=== PATIENT | female | born 1945 | race Caucasian/White ===

== ENCOUNTER 2016-09-29 13:47 | Emergency (ER) | payer OTHER ==
--- NOTE | 2016-09-29 15:16 | ED EKG INTERP ---
EKG Interpretation - EKG Time of EKG reading by physician:: 13:56 EKG Read and Signed by:: Moy Aguilar EKG Interpretation (*Must complete 3 of following elements*): Abnormal Rate: 85 (possible left atrial enlargement; rightward axis;septal infarct) Rhythm: NSR Attestation - Scribe Verification/Attestation Scribe:: Lakeshia Claros Acting as Scribe for:: Moy Aguilar Scribe documention review:: This chart was documented by a scribe and accurately reflects the service the provider performed and the decisions made by the provider.
--- NOTE | 2016-09-29 15:55 | Diag Imaging Result Document ---
PROCEDURE NAME: CHEST-2 VIEWS - 09/29/2016 PA AND LATERAL RADIOGRAPH OF THE CHEST: COMPARISON: 07/05/2016. FINDINGS: The lungs are grossly clear. There is no discrete pleural fluid collection or evidence of pneumothorax. The cardiomediastinal silhouette and upper airway are grossly unremarkable. IMPRESSION: No evidence of acute chest pathology.
--- NOTE | 2016-09-29 16:43 | PROVIDER DOCUMENTATION ---
HPI-General Adult - General Chief Complaint: Chest Pain Stated Complaint: CHEST PAIN Time Seen by Provider: 09/29/16 16:37 Source: patient Allergies/Adverse Reactions: Patient Allergies Allergy/AdvReac Type Severity Reaction Status Date / Time No Known Allergies Allergy Verified 07/05/16 13:28 Home Medications: Home Medication List Medication Instructions Recorded Confirmed Last Taken Type Ipratropium/Albuterol INH 2 puff INH Q6H PRN PRN 03/26/12 07/05/16 10/06/12 09: 00 History [Combivent Respimat Inhaler] Aspirin 81 mg PO DAILY 30 Days 07/10/16 Unknown Rx Budesonide [Pulmicort] 0.25 mg INH RTBID 30 Days 07/10/16 Unknown Rx Lorazepam [Ativan] 0.5 mg PO BID PRN PRN 14 Days 07/10/16 Unknown Rx Magnesium Oxide [Mag-Ox] 400 mg PO BID #6 tablet 07/10/16 Unknown Rx Melatonin 5 mg PO QHS 30 Days 07/10/16 Unknown Rx Metformin [Glucophage] 500 mg PO BID 30 Days 07/10/16 Unknown Rx Rivastigmine [Exelon 4.6MG/24Hrs] 1 each TD DAILY 30 Days 07/10/16 Unknown Rx SIMVAstatin [Zocor] 40 mg PO DAILY 30 Days 07/10/16 Unknown Rx Verapamil S.r. [Isoptin Sr] 180 mg PO DAILY 30 Days 07/10/16 Unknown Rx - History of Present Illness -Gen Adult Nature of Presenting Problems: Pt. is 71 yof that presents with c/o fluttering in her chest that is intermittent since June 2016. Pt. reports she has seen her PCP several times but has not mentioned it to them. Pt. states when she feels the fluttering, it takes her breath away. Pt. denies any radiation of pain, N/V, or other symptoms. Pt. reports a hx of anxiety and that she took an ativan [employer]IN[employer]CH[employer]. Pt. reports she came to the ED today because it just keeps happening. Location of Pain/Injury: reports: chest. denies: head, face, mouth, neck, upper extremity, hand(s), abdomen, back, pelvis, genitalia, lower extremity, feet, upper body, lower body, generalized Pain Radiation: reports: no radiation Quality of Pain: reports: other (Fluttering). denies: aching, burning, cramping , dull, fullness, indigestion, pressure, sharp, stabbing, tearing, throbbing, tightness Severity: reports: mild. denies: moderate, severe Onset/Duration: reports: gradual, other (3 months) Timing: reports: still present, intermittent. denies: improving, gone now, resolved prior to arrival, constant, changing over time, getting worse Context/Activities at Onset: reports: none. denies: recent emotional stress, recent physical stress, recent trauma history, possible bad food, cold exposure , out of country travel Modifying Factors: improves with: nothing Associated Symptoms: reports: anxiety, chest pain (Fluttering), shortness of breath. denies: arm pain, back/neck pain, constipation, cough, diaphoresis, diarrhea, dizziness, EENT symptoms, fatigue, fever/chills, genitourinary problems, headaches, heartburn, joint pain, loss of appetite, malaise, muscle aches, sinus congestion/drainage, nausea, rash, seizure, sensory/motor loss, pain with inspiration, swelling/mass in abdomen, syncope, vomiting, weakness, trouble walking Similar Symptoms Previously?: Yes Recently seen or treated by another doctor?: No Review of Systems - Adult - REVIEW OF SYSTEMS - ADULT Constitutional: reports: see HPI. denies: chills, fever, fatique Eyes: reports: see HPI. denies: discharge, blurred vision, double vision Ears, Nose, Mouth & Throat: reports: see HPI. denies: ear pain, sinus problem, nose pain, loose teeth, mouth/dental pain, throat swelling Cardiovascular: reports: see HPI, palpitations. denies: chest pain, irregular heart rate, orthopnea, syncope Respiratory: reports: see HPI, shortness of breath. denies: cough, dyspnea on exertion, pleurisy Gastrointestinal: reports: see HPI. denies: abdominal pain, hematemesis, constipation, diarrhea, nausea, vomiting Genitourinary: reports: see HPI. denies: dysuria, discharge, flank pain, hematuria, hesitency, urgency Musculoskeletal: reports: see HPI. denies: bone pain, back pain, joint pain, muscle aches, neck pain Integumentary: reports: see HPI. denies: hives, itching, rash, skin thickening Neurological: reports: see HPI. denies: ataxia, headache/migraines, numbness, seizure, tremors Psychiatric: reports: see HPI. denies: anxiety, depression, emotional problems , insomnia, panic attacks, suicidal thoughts Past History - Adult - PAST MEDICAL HISTORY-ADULT Review of Records: reports: Old Records Reviewed, Nursing Assessment Review, Medications Reviewed, Social history reviewed & non-contributory. Major Childhood Illnesses: reports: history unknown Cardiovascular: reports: HTN, hyperlipidemia Respiratory: reports: COPD Psychiatric: reports: anxiety, depression, schizophrenia Endocrine/Immune: reports: Diabetes - PRIOR SURGERIES/PROCEDURES Surgical/Procedure History: reports: reviewed, not pertinent - IMMUNIZATION STATUS Childhood Immunizations: See Nurse Assessment Flu Vaccine: See Nurse Assessment - FAMILY HISTORY Family History: reviewed, not pertinent - SOCIAL HISTORY Smoking: cigarettes, greater than 1 pack/day Provider spent 3-5 mins advising pt. on dangers of tobacco.: Discussed the need to stop smoking. Physical Exam-General - PHYSICAL EXAM-ADULT Initial Vital Signs Reviewed: Yes - CONSTITUTIONAL General Appearance: alert, no apparent distress, thin. negative: anxious, lethargic, slow to respond, obtunded, combative - EYES Eyes: PERRL/EOMI, pink conjunctivae. negative: conjuctival exudate, scleral icterus, subconjunctival hemorrhage - HEAD, EARS, NOSE, MOUTH & THROAT HENMT: normocephalic/atraumatic, moist mucous membranes. negative: angioedema, frontal tenderness, maxillary tenderness - NECK Neck: non-tender, full range of motion, supple, normal inspection. negative: lymphadenopathy, trachial deviation, thyromegaly - RESPIRATORY Respiratory: wheezing (Mild). negative: crackles, rales, rhonchi, stridor - CARDIOVASCULAR Cardiovascular: normal peripheral pulses, regular rate, rhythm, no edema, no JVD , no murmur. negative: extra beats, friction rub, irregularly irregular - CHEST (BREASTS) Chest/Breast: deferred - GASTROINTESTINAL (ABDOMEN) Abdominal Exam: normal bowel sounds, non tender, soft. negative: distended, guarding, rigid, rebound, tenderness, hernia, mass - GENITOURINARY Female Genitalia/Pelvic Exam: deferred Rectal Exam: deferred Hemoccult Exam: deferred - LYMPHATIC Lymphatic: no adenopathy. negative: axilla node tender, cervical node tenderness - MUSCULOSKELETAL Back Exam: normal inspection, no CVA tenderness, no vertebral tenderness. negative: ecchymosis, swelling, vertebral tenderness Extremity: normal range of motion, non-tender, normal inspection. negative: deformity, erythema, inflammation, swelling, tenderness Peripheral Pulses: radial (R): 2+, radial (L): 2+ - SKIN Integumentary: normal color, normal turgor, warm/dry. negative: cyanosis, diaphoresis, ecchymosis, erythema, jaundice, mottled, pallor, petechiae, purpura , rash, swelling, tenderness - NEUROLOGIC Neurologic: grossly normal, no motor/sensory deficits. negative: aphasia, facial droop, focal weakness, motor weakness, sensory deficit - PSYCHIATRIC Psych/Mental Status: normal mood/affect, normal thought content, normal thought process, oriented x 3. negative: anxious, paranoid, tearful Progress - PLAN OF CARE/RESULTS Progress/Plan/Lab Results: Discussed results and plan with Dr. Lo and he agrees with plan. Discussed results and plan of care with patient. Patient agrees with plan and verbalizes understanding. Vital Signs Temp Pulse Resp BP Pulse Ox 09/29/16 13:56 97.9 F 84 18 159/58 97 No Known Allergies Allergy (Verified 07/05/16 13:28) Ipratropium/Albuterol INH [Combivent Respimat Inhaler] 2 puff INH Q6H PRN PRN Aspirin 81 mg PO DAILY 30 Days 07/10/16 Budesonide [Pulmicort] 0.25 mg INH RTBID 30 Days 07/10/16 Lorazepam [Ativan] 0.5 mg PO BID PRN PRN 14 Days 07/10/16 Magnesium Oxide [Mag-Ox] 400 mg PO BID #6 tablet 07/10/16 Melatonin 5 mg PO QHS 30 Days 07/10/16 Metformin [Glucophage] 500 mg PO BID 30 Days 07/10/16 Rivastigmine [Exelon 4.6MG/24Hrs] 1 each TD DAILY 30 Days 07/10/16 SIMVAstatin [Zocor] 40 mg PO DAILY 30 Days 07/10/16 Verapamil S.r. [Isoptin Sr] 180 mg PO DAILY 30 Days 07/10/16 Laboratory 09/29/16 09/29/16 09/29/16 17:15 17:15 17:15 WBC RBC Hgb Hct MCV MCH MCHC RDW Std Deviation Plt Count MPV Immature Gran % (Auto) Neut % (Auto) Lymph % (Auto) [place] % (Auto) Eos % (Auto) Baso % (Auto) Immature Gran # (Auto) Neut # (Auto) Lymph # (Auto) [place] # (Auto) Eos # (Auto) Baso # (Auto) PT 10.1 INR 0.99 PTT (Actin FS) 28.1 D-Dimer Sodium Potassium Chloride Carbon Dioxide Anion Gap BUN Creatinine Estimated GFR/1.73 m2 BUN/Creatinine Ratio Glucose Calculated Osmolality Calcium Magnesium Total Bilirubin AST ALT Alkaline Phosphatase Creatine Kinase Troponin T < 0.010 Kzr-C-Mtrnzzmnfgr Pept 165 Total Protein Albumin Globulin Albumin/Globulin Ratio 09/29/16 09/29/16 09/29/16 17:15 17:15 17:15 WBC 9.43 RBC 5.17 Hgb 15.6 Hct 47.3 H MCV 91.5 MCH 30.2 MCHC 33.0 RDW Std Deviation 14.3 Plt Count 245 MPV 10.7 H Immature Gran % (Auto) 0.0 Neut % (Auto) 61.6 Lymph % (Auto) 29.5 [place] % (Auto) 6.3 Eos % (Auto) 2.2 Baso % (Auto) 0.4 Immature Gran # (Auto) 0.00 Neut # (Auto) 5.81 Lymph # (Auto) 2.78 [place] # (Auto) 0.59 Eos # (Auto) 0.21 Baso # (Auto) 0.04 PT INR PTT (Actin FS) D-Dimer 0.20 Sodium 139 Potassium 4.2 Chloride 99 Carbon Dioxide 28 Anion Gap 12 BUN 9 Creatinine 0.6 Estimated GFR/1.73 m2 > 60 BUN/Creatinine Ratio 15 Glucose 100 Calculated Osmolality 276 Calcium 9.0 Magnesium 2.0 Total Bilirubin 0.37 AST 23 ALT 14 Alkaline Phosphatase 70 Creatine Kinase 47 Troponin T Gnb-Q-Djzudikbqsv Pept Total Protein 7.0 Albumin 4.0 Globulin 3.0 Albumin/Globulin Ratio 1.3 Orders Category Date Time Status CHEST-2 VIEWS [RAD] Stat Exams 09/29/16 14:22 Draft CBC WITH ELECTRONIC DIFF [HEME] Stat Lab 09/29/16 17:15 Completed CK PROFILE [SP CHEM] Stat Lab 09/29/16 17:15 Completed COMPREHENSIVE METABOLIC PANEL [CHEM] Stat Lab 09/29/16 17:15 Completed D-DIMER [CHEM] Stat Lab 09/29/16 17:15 Completed MAGNESIUM [CHEM] Stat Lab 09/29/16 17:15 Completed PRO B-NATRIURETIC PEPTIDE Stat Lab 09/29/16 17:15 Completed PROTIME WITH INR [COAG] Stat Lab 09/29/16 17:15 Completed PTT [COAG] Stat Lab 09/29/16 17:15 Completed TROPONIN T Stat Lab 09/29/16 17:15 Completed Laboratory Tests 09/29/16 09/29/16 09/29/16 17:15 17:15 17:15 WBC 9.43 RBC 5.17 Hgb 15.6 Hct 47.3 H MCV 91.5 MCH 30.2 MCHC 33.0 RDW Std Deviation 14.3 Plt Count 245 MPV 10.7 H Immature Gran % (Auto) 0.0 Neut % (Auto) 61.6 Lymph % (Auto) 29.5 Eagle % (Auto) 6.3 Eos % (Auto) 2.2 Baso % (Auto) 0.4 Immature Gran # (Auto) 0.00 Neut # (Auto) 5.81 Lymph # (Auto) 2.78 [place] # (Auto) 0.59 Eos # (Auto) 0.21 Baso # (Auto) 0.04 PT INR PTT (Actin FS) D-Dimer 0.20 Sodium 139 Potassium 4.2 Chloride 99 Carbon Dioxide 28 Anion Gap 12 BUN 9 Creatinine 0.6 Estimated GFR/1.73 m2 > 60 BUN/Creatinine Ratio 15 Glucose 100 Calculated Osmolality 276 Calcium 9.0 Magnesium 2.0 Total Bilirubin 0.37 AST 23 ALT 14 Alkaline Phosphatase 70 Creatine Kinase 47 Troponin T Asm-Q-Akemcxpafth Pept Total Protein 7.0 Albumin 4.0 Globulin 3.0 Albumin/Globulin Ratio 1.3 09/29/16 09/29/16 09/29/16 17:15 17:15 17:15 WBC RBC Hgb Hct MCV MCH MCHC RDW Std Deviation Plt Count MPV Immature Gran % (Auto) Neut % (Auto) Lymph % (Auto) [place] % (Auto) Eos % (Auto) Baso % (Auto) Immature Gran # (Auto) Neut # (Auto) Lymph # (Auto) [place] # (Auto) Eos # (Auto) Baso # (Auto) PT 10.1 INR 0.99 PTT (Actin FS) 28.1 D-Dimer Sodium Potassium Chloride Carbon Dioxide Anion Gap BUN Creatinine Estimated GFR/1.73 m2 BUN/Creatinine Ratio Glucose Calculated Osmolality Calcium Magnesium Total Bilirubin AST ALT Alkaline Phosphatase Creatine Kinase Troponin T < 0.010 Bxa-A-Ecfqsqxvisq Pept 165 Total Protein Albumin Globulin Albumin/Globulin Ratio - XRAY 1 XRAY Study: Chest XRAY Interpretation: No evidence of acute chest pathology (Gan) Departure - Departure Time of Disposition Order: 18:38 DIAGNOSIS: Palpitations, Anxiety Disposition: HOME 01 Certified Medical Emergency: Emergent Condition: Stable Additional Instructions: Follow up with primary care physician Follow up with Upholstery Instructor Return to ED for any concerns or worsening of symptoms ED Follow Up Instructions: You have been treated by a care provider in the Emergency Department. These instructions are being provided to you so you can have an understanding of how to care for yourself upon discharge. Upon discharge from the Emergency Department, you are responsible for making arrangements for follow-up care by a physician of your choice. Take all prescribed medications as directed. Return to the Emergency Department immediately for any new or worsening symptoms. You may call the Physician Referral phone number at [phone] to obtain a list of Physicians who are taking new patients. Referrals: Kathleen Romero MD [Primary Care Provider] - Mendel Rousseau MD [STAFF PHYSICIAN] - Attestation - Physician/ HANK Attestation Patient care was provided by Advanced Practice Provider:: Yes Advanced Practice Provider:: Meliton Gilbert Advanced Practice Provider documentation review:: The Mid-level provider documentation, treatment plan and medical decision making was reviewed by the physician who agrees with all treatment and medical decision making by the MLP.
[2016-09-29 17:27] LABS: MANUAL DIFF NEEDED? NO
[2016-09-29 17:38] LABS: BASO% 0.4 % (0.0-0.8); EOS# 0.21 X1000 (0.0-0.7); EOS% 2.2 % (0.0-10.0); HEMATOCRIT 47.3 % (37.0-47.0); HEMOGLOBIN 15.6 g/dL (12.0-16.0); LYMPH# 2.78 X1000 (1.2-3.4); LYMPH% 29.5 % (20.5-51.1); MCH 30.2 PG (27-31); MCV 91.5 FL (81-99); MONO# 0.59 X1000 (0.11-0.59); MONO% 6.3 % (1.7-9.3); MPV 10.7 FL (7.4-10.4); NEUT% 61.6 % (42.2-75.2); PLT 245 X1000 (130-400); RBC 5.17 XMIL (4.2-5.4)
[2016-09-29 17:56] LABS: INR 0.99; PROTIME 10.1 Seconds (9.2-11.7); PTT 28.1 Seconds (22.0-36.0)
[2016-09-29 18:00] LABS: AGAP 12; ALKALINE PHOSPHATASE 70 U/L (32-104); BUN 9 mg/dL (8-22); CHLORIDE 99 mmol/L (98-107); CK PROFILE 47 U/L (24-173); COSMO 276; GOT 23 U/L (10-30); GPT 14 U/L (10-36); POTASSIUM 4.2 mmol/L (3.5-5.1); SODIUM 139 mmol/L (136-145); TCO2 28 mmol/L (25-35); TOTAL BILIRUBIN 0.37 mg/dL (0.20-1.00)
[2016-09-29 19:00] VITALS: BP 167/70
--- NOTE | 2016-09-30 05:52 | EKG Report ---
Test Performed on : 09/29/2016 1:56:47 PM Test Reason : No order in [place] Blood Pressure : / mmHG Vent. Rate : 085 BPM Atrial Rate : 085 BPM P-R Int : 114 ms QRS Dur : 082 ms QT Int : 368 ms P-R-T Axes : 084 093 132 degrees QTc Int : 437 ms Normal sinus rhythm. Possible Left atrial enlargement Rightward axis Septal infarct (cited on or before 05-JUL-2016) Abnormal ECG When compared with ECG of 05-JUL-2016 13:30, No significant change was found Unconfirmed Result
== END 2016-09-29 19:33 | disposition home or self-care (01) ==
LOC: ED 13:47
DX: R00.2 Palpitations (principal); F41.9 Anxiety disorder, unspecified; R94.31 Abnormal electrocardiogram [ECG] [EKG]; R07.89 Other chest pain; R06.02 Shortness of breath; R06.2 Wheezing; I10 Essential (primary) hypertension; E78.5 Hyperlipidemia, unspecified; J44.9 Chronic obstructive pulmonary disease, unspecified; E11.9 Type 2 diabetes mellitus without complications; F17.210 Nicotine dependence, cigarettes, uncomplicated; Z71.6 Tobacco abuse counseling
CPT/HCPCS: 71020; 80053; 82550; 83735; 83880; 84484; 85025; 85379; 85610; 85730; 93005

== ENCOUNTER 2019-04-25 14:28 | Inpatient (IN) ==
[2019-04-25 16:04] LABS: BASO# 0.01 X1000 (0.0-0.2); BASO% 0.1 % (0.0-0.8); HEMATOCRIT 42.7 % (37.0-47.0); HEMOGLOBIN 13.1 g/dL (12.0-16.0); IMM GRAN# 0.12 X1000 (0.0-0.04); IMM GRAN% 0.9 % (0.0-0.5); LYMPH# 1.11 X1000 (1.2-3.4); LYMPH% 8.6 % (20.5-51.1); MCH 31.2 PG (27-31); MCHC 30.7 g/dL (33-37); MCV 101.7 FL (81-99); MONO# 0.75 X1000 (0.11-0.59); MONO% 5.8 % (1.7-9.3); MPV 10.4 FL (7.4-10.4); NEUT% 84.6 % (42.2-75.2); PLT 229 X1000 (130-400); WBC 12.89 X1000 (4.8-10.8)
--- NOTE | 2019-04-25 16:37 | PROVIDER DOCUMENTATION ---
This chart was entered by Tierney Royal Scribe, acting as scribe for David David MD. HPI-Respiratory General - General Stated Complaint: SOB Time Seen by Provider: 04/25/19 14:53 Source: patient, family Allergies/Adverse Reactions: Patient Allergies Allergy/AdvReac Type Severity Reaction Status Date / Time No Known Allergies Allergy Verified 04/09/18 13:18 Home Medications: Home Medication List Medication Instructions Recorded Confirmed Last Taken Type Ipratropium/Albuterol INH 2 puff INH Q6H PRN PRN 03/26/12 04/09/18 04/09/18 11:30 History [Combivent Respimat Inhaler] Magnesium Oxide [Mag-Ox] 400 mg PO BID #6 tablet 07/10/16 04/08/18 04/08/18 21:00 Rx SIMVAstatin [Zocor] 40 mg PO DAILY 30 Days tablet 07/10/16 04/08/18 04/08/18 21:00 Rx Alprazolam [Xanax] 0.5 mg PO DAILY 02/04/17 04/08/18 04/08/18 09:00 History Alprazolam [Xanax] 1 mg PO HS 03/31/17 04/08/18 04/08/18 21:00 History Duloxetine [Cymbalta] 20 mg PO DAILY 03/31/17 04/08/18 04/08/18 21:00 History Furosemide [Lasix] 40 mg PO DAILY 03/31/17 04/08/18 04/08/18 21:00 History Olanzapine [Zyprexa] 5 mg PO DAILY 03/31/17 04/08/18 04/08/18 21:00 History Trazodone [Desyrel] 50 mg PO QHS 03/31/17 04/08/18 04/08/18 21:00 History Citalopram [Celexa] 10 mg PO DAILY 04/08/18 04/08/18 04/08/18 21:00 History Hydrocodone/Acetaminophen [[place] 1 each PO Q4H PRN PRN 04/08/18 04/09/18 04/08/18 History 5-325 Tablet] Memantine [Namenda] 5 mg PO DAILY 04/08/18 04/08/18 04/08/18 21:00 History Sennosides/Docusate Sodium [[place] 1 each PO DAILY 04/08/18 04/08/18 04/08/18 21:00 History Plus Tablet] Aspirin [Ecotrin] 325 mg PO BID #60 tablet. 04/09/18 Unknown Rx Metformin [Glucophage] 500 mg PO QHS 04/09/18 04/09/18 04/08/18 21:00 History Oxycodone HCl/Acetaminophen 1 each PO Q4-6H PRN PRN #40 tablet 04/09/18 Unknown Rx [Percocet 5-325 mg Tablet] - History of Present Illness-Resp Nature of Presenting Problem: 74 y/o female presents to ED with SOB onset this morning. Pt has end stage COPD and is on hospice. Pt is currently being treated for pneumonia with levaquin and prednisone, despite not being seen on x-ray per family of pt. Pt is on 2.5L O2 at home and her O2 sats are typically in the high 80s. Family reports her O2 was bumped up today and her sats got up to 98%. O2 sats in the 50s on room air in triage and were improved to 80s on nonrebreather. Pt is alert and oriented. Quality of Pain: reports: none Severity in ED: reports: moderate Onset/Duration: reports: this morning Timing: reports: still present Context: reports: other (COPD) Exposure: reports: other (COPD) Cough Quality/Degree: reports: no cough Episode Frequency: chronic episodes (COPD) Current Respiratory Medication Therapy: Initiated see nurses note Modifying Factors: improves with: oxygen Associated Symptoms: reports: shortness of breath, short of breath Similar Symptoms Previously?: Yes (COPD) Recently seen or treated by another doctor?: No Review of Systems - Adult - REVIEW OF SYSTEMS - ADULT Constitutional: denies: chills, fever Eyes: reports: no symptoms reported Ears, Nose, Mouth & Throat: reports: no symptoms reported Cardiovascular: denies: chest pain, palpitations Respiratory: reports: shortness of breath. denies: cough Gastrointestinal: denies: abdominal pain, diarrhea, nausea, vomiting Genitourinary: reports: no symptoms reported Musculoskeletal: denies: back pain, joint pain Integumentary: reports: no symptoms reported Neurological: denies: dizziness/vertigo, seizure Psychiatric: reports: no symptoms reported Endocrine: reports: no symptoms reported Hematologic/Lymphatic: reports: no symptoms reported Allergic/Immunologic: reports: no symptoms reported All Other Systems: Reviewed and Negative Past History - Adult - PAST MEDICAL HISTORY-ADULT Review of Records: reports: Old Records Reviewed, Nursing Assessment Review, Medications Reviewed Major Childhood Illnesses: reports: history unknown Cardiovascular: reports: HTN, hyperlipidemia Respiratory: reports: asthma, COPD, sleep apnea Gastrointestinal: reports: denies history Obstetrical/Gynecological: reports: denies history Genitourinary: reports: denies history Musculoskeletal: reports: denies history Neurological: reports: dementia Psychiatric: reports: anxiety, depression, schizophrenia Endocrine/Immune: reports: Diabetes Other Conditions: reports: denies history - PRIOR SURGERIES/PROCEDURES Surgical/Procedure History: reports: hysterectomy, bowel surgery (mesh in colon) , other (vaginal mesh) - IMMUNIZATION STATUS Childhood Immunizations: See Nurse Assessment Flu Vaccine: See Nurse Assessment - FAMILY HISTORY Family History: reviewed, not pertinent - SOCIAL HISTORY Smoking: greater than 1 pack/day Provider spent 3-5 mins advising pt. on dangers of tobacco.: Discussed manners to quit use, and f/u contacts for add'l counseling. Substance Use: none/never Alcohol Use Frequency: never Living Situation: family Physical Exam-General - PHYSICAL EXAM-ADULT Initial Vital Signs Reviewed: Yes (95% O2 sat on 2L) - CONSTITUTIONAL General Appearance: appears well, alert, no apparent distress - EYES Eyes: PERRL/EOMI, pink conjunctivae - HEAD, EARS, NOSE, MOUTH & THROAT HENMT: normocephalic/atraumatic, moist mucous membranes, normal ENT inspection - NECK Neck: non-tender, full range of motion - RESPIRATORY Respiratory: chest non-tender, rhonchi (scattered), wheezing (mild) - CARDIOVASCULAR Cardiovascular: tachycardia - SKIN Integumentary: normal color, warm/dry - NEUROLOGIC Neurologic: grossly normal - PSYCHIATRIC Psych/Mental Status: normal mood/affect, normal thought content, normal thought process, oriented x 3 - HEART Score HEART Score: History: Slightly Suspicious HEART Score: ECG: Non-Specific Repolarization Disturbance/LBBB/PM HEART Score: Age: > or = 65 Years HEART Score: Risk Factors for Atherosclerotic Disease: > or = 3 Risk Factors or History of Atherosclerotic Disease HEART Score: Troponin: < or = Normal Limit Total HEART Score:: 5 Progress - PLAN OF CARE/RESULTS Progress/Plan/Lab Results: Vital Signs - 8 hr 04/25/19 14:35 04/25/19 17:22 Temperature 97.6 F Pulse Rate 114 H 115 H Respiratory Rate 30 H 22 Blood Pressure 173/85 O2 Sat by Pulse Oximetry 97 96 Laboratory Results - last 24 hr 04/25/19 04/25/19 04/25/19 14:57 14:57 14:57 WBC 12.89 H RBC 4.20 Hgb 13.1 Hct 42.7 MCV 101.7 H MCH 31.2 H MCHC 30.7 L RDW Std Deviation 13.0 Plt Count 229 MPV 10.4 Immature Gran % (Auto) 0.9 H Neut % (Auto) 84.6 H Lymph % (Auto) 8.6 L [place] % (Auto) 5.8 Eos % (Auto) 0.0 Baso % (Auto) 0.1 Immature Gran # (Auto) 0.12 H Neut # (Auto) 10.90 H Lymph # (Auto) 1.11 L [place] # (Auto) 0.75 H Eos # (Auto) 0.00 Baso # (Auto) 0.01 Magnesium 2.6 Plasma Lactate 2.5 H Orders Category Date Time Status CHEST-1 VIEW [RAD] Stat Exams 04/25/19 15:49 Taken BLOOD CULTURE [BLDCUL] Stat Lab 04/25/19 16:38 Results CBC WITH DIFF [HEME] Stat Lab 04/25/19 14:57 Completed COMPREHENSIVE METABOLIC PANEL [CHEM] Stat Lab 04/25/19 14:57 Received LACTATE, PLASMA [CHEM] Stat Lab 04/25/19 14:57 Completed MAGNESIUM [CHEM] Stat Lab 04/25/19 14:57 Completed Albuterol 2.5MG/Ipratrop 0.5MG [Duoneb (A & A)] Med 04/25/19 16:54 Discontinued 3 ml INH NOW ONE Aerosol Treatments Routine Oth 04/25/19 16:54 Completed Aerosol Treatments Stat Oth 04/25/19 16:54 Completed Result Diagrams: 04/25/19 14:57 - EKG 1 Time of EKG reading by physician:: 14:43 EKG Read and Signed by:: David David EKG Interpretation (*Must complete 3 of following elements*): Abnormal Rate: 112 Rhythm: Sinus tach [place]: right QRS: other (possible L atrial enlargement; septal infarct) MI Interval: normal ST Wave: normal - XRAY 1 XRAY Study: Chest Impression: See EMR Report - CONSULTS/PCP/HOSPITALIST Notification #1 *Consult/PCP/Hospitalist*: Dr. Dumont Time Discussed: 17:28 Reason/Comments: COPD exacerbation Consult Disposition: Admit Departure - Departure Date of Disposition Decision: 04/25/19 Time of Disposition Decision: 17:33 DIAGNOSIS: COPD exacerbation Disposition: ADMITTED INPATIENT 09 Certified Medical Emergency: Emergent Condition: Stable Referrals and Follow-Ups: None,PCP [NON-STAFF PROVIDER] - Discharge Education: Steps to Quit Smoking, [id number] - Critical Care Note This patient required my direct & personal management of CC.: No Attestation - Physician/ HANK Attestation Patient care was provided by Advanced Practice Provider:: No The physician spent face to face time with patient:: Yes (e) Advanced Practice Provider documentation review:: Supervising physician onsite and consulted in the evaluation and care of this patient. The physician did have a face to face encounter with the patient. This chart was documented by the indicated scribe, (Tierney Royal, Ty) and accurately reflects the services I performed and decisions made by me, David David MD, as attested by the provider's signature.
[2019-04-25] MEDS ORDERED: DUONEB (A & A) INH ONE (16:54)
--- NOTE | 2019-04-25 17:43 | EKG Report ---
Test Performed on : 04/25/2019 2:43:45 PM Test Reason : SOB Blood Pressure : / mmHG Vent. Rate : 112 BPM Atrial Rate : 112 BPM P-R Int : 124 ms QRS Dur : 086 ms QT Int : 304 ms P-R-T Axes : 064 096 051 degrees QTc Int : 414 ms Sinus tachycardia. Possible Left atrial enlargement Rightward axis Septal infarct (cited on or before 05-JUL-2016) Abnormal ECG When compared with ECG of 08-APR-2018 12:09, ST no longer depressed in Inferior leads Nonspecific T wave abnormality has replaced inverted T waves in Lateral leads Unconfirmed Result
[2019-04-25] MEDS ORDERED: NS NEB INH SCH (17:45)
[2019-04-25] MEDS ORDERED: TYLENOL PO PRN (17:48)
[2019-04-25] MEDS ORDERED: ZOFRAN IV PRN (17:48)
[2019-04-25] MEDS ORDERED: ROBITUSSIN-DM PO PRN (18:11)
--- NOTE | 2019-04-25 18:29 | Diag Imaging Result Doc PS360 ---
EXAM: CHEST-1 VIEW INDICATION: recent dx of pneumonia? hx COPD/CHF TECHNIQUE: One view COMPARISON: 03/31/2017 FINDINGS: The lungs are hyperinflated suggesting COPD, stable. There is vague patchy increased opacity at the right lung base that may represent mild pneumonia. There is no discrete pleural fluid collection or pneumothorax. The cardiomediastinal silhouette and central vasculature are grossly unremarkable. IMPRESSION: Vague patchy increased opacity at the right lung base as described. Electronically signed by Aman Gan 04/25/2019 6:26 PM
[2019-04-25 18:42] LABS: HEMOGLOBIN A1C 6.6 % (4.8-6.0)
[2019-04-25] MEDS: ROCEPHIN 1 GM in NS 50 ML IV SCH (18:42)
[2019-04-25] MEDS: SOLU-MEDROL IV SCH (18:42)
[2019-04-25 18:44] LABS: ALLEN TEST YES; BE 12.4 mmoll (-3.0-3.0); BLOOD TYPE ARTERIAL; HCO3-(ACT) 34.3 mmoll (20.0-26.0); METHB 0.9 % (0.0-1.5); O2(CT) 16.8 mL/dL (15.0-23.0); PO2(98.6) 71 mmHg (60-100); SAMPLE BLOOD; SAO2 96.5 % (95.0-100.0); THB 13.6 g/dL (11.5-17.4); pH(98.6) 7.22 (7.35-7.45)
[2019-04-25 18:46] LABS: MODALITY CANNULA; PCO2(98.6) 110 mmHg (35-45)
[2019-04-25 18:47] LABS: O2HB 87.7 % (95.0-99.0)
[2019-04-25] MEDS: XANAX PO PRN (19:49)
[2019-04-25] MEDS: XOPENEX NEB INH SCH (20:00)
[2019-04-25 20:13] LABS: AGAP 9; ALB/GLOB RATIO 1.2; ALKALINE PHOSPHATASE 76 U/L (32-104); BUN 25 mg/dL (8-22); CALCIUM 8.6 mg/dL (8.8-10.2); CHLORIDE 81 mmol/L (98-107); COSMO 269; CREATININE 0.6 mg/dL (0.5-0.9); ESTIMATED GFR > 60; GLUCOSE 308 mg/dL (70-104); GOT 28 U/L (10-30); GPT 19 U/L (10-36); POTASSIUM 6.2 mmol/L (3.5-5.1); SODIUM 126 mmol/L (136-145); TCO2 36 mmol/L (25-35); TOTAL BILIRUBIN 0.17 mg/dL (0.20-1.00); TOTAL PROTEIN 7.3 g/dL (6.3-8.3)
[2019-04-25] MEDS ORDERED: KAYEXALATE PO ONE (20:32)
[2019-04-25] MEDS ORDERED: D50W SYRINGE IV ONE (20:50)
[2019-04-25] MEDS ORDERED: SODIUM BICARBONATE 8.4% IV ONE (20:50)
[2019-04-25] MEDS ORDERED: HUMULIN R IV ONE (20:50)
[2019-04-25] MEDS: HEPARIN SUBQ SCH (20:51)
[2019-04-25] MEDS: ZITHROMAX 500 MG/NS 500 MG/250 ML IVPB IV SCH (20:51)
[2019-04-25] MEDS: HUMULIN R SUBQ SCH (20:52)
[2019-04-25] MEDS ORDERED: CALCIUM GLUCONATE 1 GM in NS 50 ML IV ONE (20:57)
[2019-04-25] MEDS ORDERED: XANAX PO SCH (21:00)
[2019-04-25 21:44] LABS: AGAP 8; BUN 24 mg/dL (8-22); CALCIUM 8.7 mg/dL (8.8-10.2); CHLORIDE 81 mmol/L (98-107); COSMO 267; CREATININE 0.6 mg/dL (0.5-0.9); ESTIMATED GFR > 60; GLUCOSE 269 mg/dL (70-104); POTASSIUM 6.3 mmol/L (3.5-5.1); SODIUM 126 mmol/L (136-145); TCO2 37 mmol/L (25-35)
[2019-04-25 21:44] LABS: ALLEN TEST YES; BE 3.7 mmoll (-3.0-3.0); BLOOD TYPE ARTERIAL; HCO3-(ACT) 27.7 mmoll (20.0-26.0); METHB 0.8 % (0.0-1.5); O2(CT) 16.5 mL/dL (15.0-23.0); O2HB 91.2 % (95.0-99.0); PCO2(98.6) 100 mmHg (35-45); PO2(98.6) 102 mmHg (60-100); SAMPLE BLOOD; SAO2 98.3 % (95.0-100.0); THB 12.8 g/dL (11.5-17.4)
[2019-04-25 21:46] LABS: MODALITY BI PAP
--- NOTE | 2019-04-25 21:46 | HISTORY AND PHYSICAL ---
PRIMARY CARE PHYSICIAN: Dr. Jeff Goodman. CHIEF COMPLAINT: I have been feeling more short of breath over the last week and I have a poor appetite. HISTORY OF PRESENT ILLNESS: Ms Delatorre is a 74-year-old female with a history of end-stage COPD, asthma, tobacco dependence, diabetes mellitus type 2, and depression who was brought to the ER by family due to worsening shortness of breath. The patient is under the care of [facility] services and when the nurse came out to assess the patient today, the patient was noted to be severely short of breath and hypoxic. The patient was brought to the ER and upon arrival was noted to have O2 saturation in the low 70s as per the intake nurse. The patient reports that she has been coughing a lot lately and has not been eating very well. The patient admits that she does smoke 1 pack of cigarettes daily. She is on chronic home oxygen at 2 L nasal cannula. She denies having any chest pain but does complain of palpitations. The patient was prescribed clindamycin, Levaquin and a Medrol Dosepak on April 22 for pneumonia. Despite taking these medications, the patient's condition continued to worsen. According to the patient's daughter, the patient has a Combivent inhaler that she uses frequently but does not receive relief from it. The patient does not have a nebulizer machine at home. In the ER, chest x-ray was done that revealed an infiltrate at the right lung base. While in the ER the patient received a DuoNeb treatment and was placed on supplemental oxygen. PAST MEDICAL HISTORY: 1. End stage COPD. 2. Diabetes mellitus type 2. 3. Asthma. 4. Tobacco dependence. 5. Anxiety disorder. 6. Hyperlipidemia. 7. Depression. 8. Dementia. PAST SURGICAL HISTORY: 1. Right ORIF bimalleolar ankle fracture. 2. Hernia repair. 3. Hysterectomy. FAMILY HISTORY: Reviewed and noncontributory. SOCIAL HISTORY: The patient smokes 1 pack of cigarettes a day. The patient lives at home with her daughter. She denies any alcohol or illicit drug use. ALLERGIES: No known drug allergies. HOME MEDICATIONS: The patient's medications are not available at this time. REVIEW OF SYSTEMS: A 12-point review of system has been performed. Please refer to the history of present illness for pertinent positives and negatives. PHYSICAL EXAMINATION: VITAL SIGNS: Temperature 97.6 degrees, blood pressure 173/85, heart rate 114, respirations 30, O2 saturation 97% on 3 L nasal cannula. GENERAL: This is a cachectic, elderly female lying in bed in mild distress. HEENT: Head normocephalic, atraumatic. Conjunctiva clear, EOMI, PERRLA. NECK: Supple. No JVD. No lymphadenopathy. HEART: S1, S2 normal tachycardic. LUNGS: Diffuse rhonchi with wheezes bilaterally. ABDOMEN: Positive bowel sounds. Soft, nontender, nondistended. EXTREMITIES: No edema, no cyanosis, no calf tenderness. NEUROLOGIC: The patient is alert and oriented x4. No focal neurologic deficits noted. Cranial nerves 2 through 12 intact. LABS: White blood cell count 12.8, hemoglobin 13, hematocrit 42, platelets 229,000. ABG pH 7.22, pCO2 110, PO2 71, bicarb 34. Sodium 126, potassium 6.2, chloride 81, CO2 36, BUN 24, creatinine 0.6, glucose 308. Hemoglobin A1c 6.6, lactate 2.5, TSH 0.86. Chest x-ray shows increased opacity at the right lung base that may represent pneumonia. ASSESSMENT AND PLAN: 1. Acute on chronic hypoxemic and hypercapnic respiratory failure. The patient has pneumonia and a chronic obstructive pulmonary disease exacerbation. The patient will be placed on BiPAP and monitored closely. 2. Right lower lobe pneumonia. Blood cultures and a sputum culture have been ordered. We will start the patient on broad-spectrum antibiotics and bronchodilator therapy. We will also provide the patient with an incentive spirometer. 3. Chronic obstructive pulmonary disease exacerbation. We will start IV steroids, bronchodilator therapy and supplemental oxygen. 4. Hyperkalemia. We will treat the patient's potassium and repeat the level this evening. 5. Hyponatremia. We will check a urine sodium and urine osmolality. In the meantime, will start the patient on gentle IV fluid hydration. 6. Tobacco dependence. The patient has been counseled about smoking cessation. 7. Diabetes mellitus type 2. We will start the patient on sliding scale insulin. 8. Anxiety disorder. We will continue with Xanax p.r.n. 9. Gastrointestinal prophylaxis. Will start the patient on omeprazole. 10. Deep vein thrombosis prophylaxis. Will start the patient on heparin. 11. Disposition. The patient states that she wants to be a DNR level 1. We will consult Palliative Care to discuss goals of care with the patient. cc: Екатерина Dumont MD MTDD
[2019-04-25 21:49] LABS: pH(98.6) 7.16 (7.35-7.45)
[2019-04-25] MEDS: LEVEMIR SUBQ SCH (22:12)
[2019-04-25] MEDS: NS 1,000 ML IV SCH (22:15)
[2019-04-25] MEDS: NICODERM PATCH TD SCH (22:22)
[2019-04-25] MEDS ORDERED: INSULIN PEN NEEDLES ONE (22:26)
[2019-04-26] MEDS: SOLU-MEDROL IV SCH ×3 (02:01→17:46)
[2019-04-26] MEDS: XOPENEX NEB INH SCH ×4 (03:02→21:24)
[2019-04-26 05:55] LABS: ALLEN TEST YES; BE 11.1 mmoll (-3.0-3.0); BLOOD TYPE ARTERIAL; HCO3-(ACT) 33.5 mmoll (20.0-26.0); METHB 0.9 % (0.0-1.5); O2(CT) 18.1 mL/dL (15.0-23.0); O2HB 94.7 % (95.0-99.0); PO2(98.6) 142 mmHg (60-100); SAMPLE BLOOD; SAO2 99.2 % (95.0-100.0); THB 13.4 g/dL (11.5-17.4)
[2019-04-26 05:58] LABS: MODALITY BI PAP; PCO2(98.6) 119 mmHg (35-45); pH(98.6) 7.18 (7.35-7.45)
[2019-04-26] MEDS ORDERED: VELTASSA PO SCH (06:00)
[2019-04-26] MEDS: HUMULIN R SUBQ SCH ×4 (06:29→20:19)
--- NOTE | 2019-04-26 06:35 | Diag Imaging Result Doc PS360 ---
EXAM: CHEST-PORTABLE HISTORY: dyspnea TECHNIQUE: Portable chest single view COMPARISON: 04/25/2019 FINDINGS: The lungs are well expanded. The heart is not enlarged. There are mild increased interstitial markings in the lungs. No effusion identified. IMPRESSION: Small infiltrates. No improvement. Electronically signed by Abel Dorsey 04/26/2019 6:33 AM
[2019-04-26 07:11] LABS: HEMATOCRIT 42.8 % (37.0-47.0); HEMOGLOBIN 13.2 g/dL (12.0-16.0); IMM GRAN# 0.08 X1000 (0.0-0.04); IMM GRAN% 0.6 % (0.0-0.5); LYMPH# 0.69 X1000 (1.2-3.4); LYMPH% 5.2 % (20.5-51.1); MCH 31.3 PG (27-31); MCHC 30.8 g/dL (33-37); MCV 101.4 FL (81-99); MONO# 0.16 X1000 (0.11-0.59); MONO% 1.2 % (1.7-9.3); MPV 10.4 FL (7.4-10.4); NEUT# 12.39 X1000 (1.4-6.5); PLT 209 X1000 (130-400); RBC 4.22 XMIL (4.2-5.4); RDW 12.9 % (11.5-14.5); WBC 13.32 X1000 (4.8-10.8)
[2019-04-26 07:13] LABS: URINE SOURCE CLEAN CATCH
[2019-04-26] MEDS: XANAX PO PRN (07:13)
[2019-04-26 07:20] LABS: BILIRUBIN URINE NEGATIVE (NEGATIVE); BLOOD URINE NEGATIVE (NEGATIVE); COLOR YELLOW; GLUCOSE URINE 300 mg/dL (NEGATIVE); KETONE URINE NEGATIVE (NEGATIVE); LEUKOCYTES URINE NEGATIVE (NEGATIVE); NITRITE URINE NEGATIVE (NEGATIVE); PROTEIN URINE TRACE mg/dL (NEGATIVE); SP GRAVITY URINE 1.016; TURBIDITY URINE CLEAR (CLEAR); UROBILINOGEN URINE NORMAL (NORMAL)
[2019-04-26 07:21] LABS: UR EPITHELIAL CELLS >10 /HPF (<10); URINE BACTERIA NEGATIVE /HPF; URINE RBC <10 /HPF (<10); URINE WBC <10 /HPF (<10)
[2019-04-26 07:24] LABS: AGAP 4; BUN 23 mg/dL (8-22); CALCIUM 8.8 mg/dL (8.8-10.2); CHLORIDE 83 mmol/L (98-107); COSMO 256; CREATININE 0.7 mg/dL (0.5-0.9); ESTIMATED GFR > 60; GLUCOSE 119 mg/dL (70-104); SODIUM 125 mmol/L (136-145); TCO2 38 mmol/L (25-35)
[2019-04-26 07:41] LABS: POTASSIUM 6.2 mmol/L (3.5-5.1)
[2019-04-26 07:49] LABS: BANDS 4 % (0-1); LYMPHS 6 % (21-51); SEGS 90 % (42-75)
[2019-04-26] MEDS ORDERED: HUMULIN R IV ONE (08:13)
[2019-04-26] MEDS ORDERED: D50W SYRINGE IV ONE (08:14)
[2019-04-26] MEDS ORDERED: LOKELMA POWDER PACKET PO STA (08:15)
[2019-04-26] MEDS: PRILOSEC PO SCH (08:22)
[2019-04-26] MEDS ORDERED: CALCIUM GLUCONATE 4.65 MEQ in NS 50 ML IV ONE (08:30)
--- NOTE | 2019-04-26 08:44 | EKG Report ---
Test Performed on : 04/26/2019 08:22:38 AM Test Reason : Hyperkalemia Blood Pressure : / mmHG Vent. Rate : 114 BPM Atrial Rate : 114 BPM P-R Int : 114 ms QRS Dur : 082 ms QT Int : 304 ms P-R-T Axes : 084 103 067 degrees QTc Int : 419 ms Sinus tachycardia. Rightward axis Anterior infarct (cited on or before 05-JUL-2016) Abnormal ECG When compared with ECG of 25-APR-2019 14:43, (Unconfirmed) Nonspecific T wave abnormality no longer evident in Inferior leads Confirmed by Bill Estrella MD ([id number]) on 04/27/2019 11:05:48 PM
--- NOTE | 2019-04-26 09:55 | PROGRESS NOTE ---
DATE: 04/26/2019 SUBJECTIVE: This patient is lying comfortably in bed. She is not complaining of pain. She has been using the BiPAP machine, and she is still having respiratory acidosis. Also she is hyperkalemic and hyponatremic. I will treat the potassium. She has been placed on some fluids. It looks like she has an advanced/end-stage COPD and she has been on home hospice. Palliative Care has been consulted as well as Pulmonary Department. I believe this patient will not recover from this pathology and likely she will end up with hospice again. OBJECTIVE: Vital Signs: Temperature 98.3 degrees, pulse 108, respiratory rate 37, blood pressure 140/89, oxygen saturation 100% on the BiPAP machine. HEENT: Head normocephalic. No trauma. PERRLA. Neck: Supple. No JVD. Central trachea. Chest: Coarse breath sounds bilaterally with diffuse rhonchi and wheezing mostly at the bases. Abdomen: Soft, nontender, nondistended. No hepatosplenomegaly. Extremities: No edema, no clubbing, no cyanosis. Neurological: The patient is alert. She is following commands. She is able to recognize family members at the bedside. She moves all 4 extremities spontaneously. I can understand completely what she says because of the BiPAP machine. LABORATORY DATA: WBC 13.3, hemoglobin 13.2, hematocrit 42.8, platelets 209,000. The pH is 7.18, pCO2 119, PO2 142, bicarbonate 33.5. Sodium 125, potassium 6.2, chloride 83, bicarbonate 38, BUN 27, creatinine 0.7, glucose 119, calcium 8.8. ASSESSMENT AND PLAN: 1. Acute on chronic hypoxemic and hypercarbic respiratory failure due to end-stage chronic obstructive pulmonary disease and right lower lobe pneumonia. Continue with antibiotics and chronic obstructive pulmonary disease exacerbation treatment. Pulmonary Department has been consulted. 2. Right lower lobe pneumonia as above. 3. Chronic obstructive pulmonary disease exacerbation. Continue with steroids, bronchodilators and oxygen supplementation, antibiotics. 4. Hyperkalemia. I will treat the potassium today again. 5. Hyponatremia. I will continue with same management. I asked for urine osmolarity and urine sodium. The serum osmolarity seems to be good. 6. Tobacco abuse. As per the daughter, this patient is still smoking. She has end-stage chronic obstructive pulmonary disease and as per the daughter, she is not willing to quit smoking at this point. We will continue with daily cessation education. 7. Type 2 diabetes. We will start this patient on sliding scale insulin and she has been placed also on Levemir twice a day. 8. Anxiety disorder. Continue with Xanax as needed. 9. Gastrointestinal prophylaxis with omeprazole. 10. Deep vein thrombosis prophylaxis with heparin. DISPOSITION: This patient has been placed DNR level 1. Palliative Care has been consulted. She has been in hospice before. We will discuss again the goals of care. I already talked to the daughter about that and she does not want her mom to be suffering. I agree with the DNR status and probably this patient to go home with hospice again. cc: Scotty Castillo MD
[2019-04-26] MEDS: LEVEMIR SUBQ SCH ×2 (10:23→20:19)
[2019-04-26] MEDS: NICODERM PATCH TD SCH (10:23)
[2019-04-26] MEDS: HEPARIN SUBQ SCH ×2 (10:23→20:18)
[2019-04-26] MEDS ORDERED: XANAX PO PRN ×2 (11:06→17:17)
[2019-04-26 12:32] LABS: ALLEN TEST YES; BE 12.8 mmoll (-3.0-3.0); BLOOD TYPE ARTERIAL; HCO3-(ACT) 34.8 mmoll (20.0-26.0); METHB 0.9 % (0.0-1.5); O2(CT) 17.6 mL/dL (15.0-23.0); O2HB 94.1 % (95.0-99.0); PO2(98.6) 76 mmHg (60-100); SAMPLE BLOOD; SAO2 97.8 % (95.0-100.0); THB 13.3 g/dL (11.5-17.4); pH(98.6) 7.28 (7.35-7.45)
[2019-04-26 12:36] LABS: MODALITY BI PAP; PCO2(98.6) 93 mmHg (35-45)
[2019-04-26] MEDS: NS 1,000 ML IV SCH (12:43)
--- NOTE | 2019-04-26 15:18 | CONSULTATION ---
DATE OF CONSULTATION: 04/26/2019 REQUESTING PROVIDER: Dr. Екатерина Dumont REASON FOR CONSULTATION: Acute respiratory failure. HISTORY OF PRESENT ILLNESS: This is a 74-year-old female with a medical history of end- stage COPD, asthma, ongoing tobacco abuse, anxiety, depression, diabetes mellitus type 2, hyperlipidemia, and dementia. She presented to the ER on 04/26/2019 with acute worsening shortness of breath and confusion. She was on continuous home oxygen at 2 liters, and the family had to increase the oxygen flow rate to 3.5 liters. Upon arrival, she had tachycardia and tachypnea. Labs revealed mild leukocytosis, severe hypercapnia with pCO2 at 100, hyperkalemia with potassium at 6.3, elevated proBNP at 4056 and plasma lactate at 2.5. She has been admitted to the [facility] with acute on chronic hypoxic hypercapnic respiratory failure, right lower lobe pneumonia, and COPD exacerbation. She was put on BiPAP in the ER. She also received azithromycin and ceftriaxone and IV Solu-Medrol. The patient currently is lying in bed with a BiPAP mask on. She still has tachycardia and tachypnea. She appears slightly drowsy. The patient's daughter and granddaughter are at the bedside. The patient's granddaughter reported that patient has been treated for COPD exacerbation by hospice 3 days before admission with 2 antibiotics and oral steroid. She has some moderate dry cough, and she has been on codeine cough syrup. The patient's apparently about 11 days ago, and since then the patient has been inactive most of the time. Family increased her bedtime Xanax from 1 mg to 2 mg to help her rest. She did complain of some dizziness, occasional constipation, occasional palpitation and chronic poor appetite. Yesterday morning, before coming to hospital, patient appears confused and has acute worsening shortness of breath. Family also reported that she smokes apparently more than she used to recently. She has no fever, chills, chest pain, bowel habit change, nausea, vomiting, facial droop or loss of balance. PAST MEDICAL HISTORY: 1. End-stage COPD on continuous home oxygen at 2 L for over 1 year. 2. Asthma. 3. Ongoing tobacco abuse. 4. Anxiety disorder. 5. Depression. 6. Diabetes mellitus type 2. 7. Hyperlipidemia. 8. Dementia. PAST SURGICAL HISTORY: 1. Right ORIF of bimalleolar ankle fracture. 2. Hernia repair. 3. Hysterectomy. SOCIAL HISTORY: Patient is home hospice care. She used to live at home with her . And since her 11 days ago, she moves to live with her daughter's family. She used smokes 1 pack of cigarettes per day for over 60 years, but recently she smoked more heavily. She has no history of alcohol or illicit drug use. FAMILY HISTORY: Reviewed and noncontributory. ALLERGIES: No known drug allergies. REVIEW OF SYSTEMS: Difficult to be obtained with the BiPAP mask on and drowsiness. PHYSICAL EXAMINATION: Vital Signs: Temperature 98.9, blood pressure 140/89, pulse 108, respiratory rate 37, oxygen saturation 100% on BiPAP with FiO2 of 60% and pressure 14/6. General: A cachectic elderly female lying in bed on her BiPAP mask. She has tachycardia and tachypnea. HEENT: Atraumatic, normocephalic. Trachea midline. Mucosa pink and moist. Respiratory: Tachypnea. Symmetrical excursion. Auscultation revealed moderate inspiratory and expiratory wheezing anteriorly bilaterally, with diminished breathing sounds bilaterally and prolonged expiratory phase. Cardiovascular: Regular rate and rhythm. Gastrointestinal: Soft, flat, nontender. Bowel sounds normoactive in all 4 quadrants. Extremities: Left lower extremity trace pedal edema around the ankle area. No cyanosis. No clubbing. Dorsalis pedis 2+ bilaterally. Neurologic: Alert and oriented to person and place. Speech fluent. Able to follow simple commands. Has generalized weakness. LABORATORY DATA: White blood cells 13.32, hemoglobin 13.2, hematocrit 42.8, platelet 209,000. Sodium 125, potassium 6.2, chloride 83, carbon dioxide 38, BUN 23, creatinine 0.7, glucose 119. ABG, pH 7.18, pCO2 of 119, PO2 of 142, HCO3 of 33.5, base excess 11.1, and oxyhemoglobin 94.7. IMAGING DATA: Chest x-ray showed mild increased interstitial markings in the lungs. ASSESSMENT: This is a 74-year-old female with medical history of end- stage chronic obstructive pulmonary disease, asthma, ongoing tobacco abuse, anxiety, depression, diabetes mellitus type 2, hyperlipidemia, and dementia. She has been admitted to the [facility] since yesterday with acute on chronic hypoxic hypercapnic respiratory failure, right lower lobe pneumonia, and chronic obstructive pulmonary disease exacerbation. 1. Acute on chronic hypoxemic hypercapnic respiratory failure. 2. Right lower lobe pneumonia. 3. Chronic obstructive pulmonary disease exacerbation with ongoing tobacco abuse. 4. Hypokalemia. 5. Hyponatremia. 6. Anxiety and depression. Patient's 11 days ago. PLAN: 1. Continue supplemental oxygen. Continue BiPAP at bedtime and as needed. 2. Continue antibiotics steroid and bronchodilators. 3. Follow up with ABG, CBC, BMP, blood culture, procalcitonin and sputum culture. 4. Daily smoking cessation education. The patient currently has no interest for smoking cessation. 5. Consider to decrease benzo. 6. The patient has been on home hospice care before admission. Agree to start palliative care consult at this time. 7. Continue GI and DVT prophylaxis. 8. Further recommendations pending hospital course. Thank you for the courtesy of this consultation. Dictated by BETTY Katz for Clarke Llanes MD cc: BETTY Katz MD [facility]
[2019-04-26] MEDS: MUCOMYST 20% INH SCH ×2 (16:11→21:24)
[2019-04-26] MEDS: ATROVENT NEB INH SCH ×2 (16:12→21:24)
[2019-04-26 16:52] LABS: ESTIMATED GFR > 60
[2019-04-26 16:54] LABS: AGAP 8; BUN 18 mg/dL (8-22); CALCIUM 8.7 mg/dL (8.8-10.2); CHLORIDE 88 mmol/L (98-107); COSMO 266; CREATININE 0.5 mg/dL (0.5-0.9); GLUCOSE 116 mg/dL (70-104); POTASSIUM 5.6 mmol/L (3.5-5.1); SODIUM 131 mmol/L (136-145); TCO2 35 mmol/L (25-35)
[2019-04-26] MEDS ORDERED: ATIVAN IV ONE (17:16)
[2019-04-26] MEDS: ROCEPHIN 1 GM in NS 50 ML IV SCH (17:46)
[2019-04-26] MEDS: ZITHROMAX 500 MG/NS 500 MG/250 ML IVPB IV SCH (20:18)
[2019-04-26] MEDS ORDERED: XANAX PO SCH (21:00)
[2019-04-27] MEDS: NS 1,000 ML IV SCH (01:02)
[2019-04-27] MEDS: SOLU-MEDROL IV SCH ×2 (01:15→09:38)
[2019-04-27] MEDS: XOPENEX NEB INH SCH (03:03)
[2019-04-27] MEDS: ATROVENT NEB INH SCH (03:04)
[2019-04-27 04:28] LABS: ALLEN TEST YES; BE 16.8 mmoll (-3.0-3.0); BLOOD TYPE ARTERIAL; METHB 0.9 % (0.0-1.5); O2HB 96.6 % (95.0-99.0); PO2(98.6) 103 mmHg (60-100); SAMPLE BLOOD; SAO2 98.7 % (95.0-100.0); THB 12.4 g/dL (11.5-17.4); pH(98.6) 7.45 (7.35-7.45)
[2019-04-27 04:29] LABS: MODALITY BI PAP; PCO2(98.6) 63 mmHg (35-45)
[2019-04-27] MEDS: PRILOSEC PO SCH ×2 (05:30→06:18)
[2019-04-27] MEDS: HUMULIN R SUBQ SCH ×2 (06:18→11:00)
[2019-04-27 07:21] LABS: BASO# 0.01 X1000 (0.0-0.2); BASO% 0.1 % (0.0-0.8); HEMATOCRIT 43.1 % (37.0-47.0); HEMOGLOBIN 13.5 g/dL (12.0-16.0); IMM GRAN# 0.05 X1000 (0.0-0.04); IMM GRAN% 0.5 % (0.0-0.5); LYMPH# 0.81 X1000 (1.2-3.4); LYMPH% 7.9 % (20.5-51.1); MCH 31.3 PG (27-31); MCHC 31.3 g/dL (33-37); MCV 99.8 FL (81-99); MONO# 0.24 X1000 (0.11-0.59); MONO% 2.3 % (1.7-9.3); MPV 10.4 FL (7.4-10.4); NEUT# 9.17 X1000 (1.4-6.5); NEUT% 89.2 % (42.2-75.2); PLT 205 X1000 (130-400); RBC 4.32 XMIL (4.2-5.4); RDW 12.8 % (11.5-14.5); WBC 10.28 X1000 (4.8-10.8)
[2019-04-27 07:28] LABS: AGAP 7; BUN 19 mg/dL (8-22); CALCIUM 8.3 mg/dL (8.8-10.2); CHLORIDE 92 mmol/L (98-107); COSMO 274; CREATININE 0.5 mg/dL (0.5-0.9); ESTIMATED GFR > 60; GLUCOSE 123 mg/dL (70-104); POTASSIUM 5.1 mmol/L (3.5-5.1); SODIUM 135 mmol/L (136-145); TCO2 36 mmol/L (25-35)
[2019-04-27 07:41] VITALS: BP 131/61
[2019-04-27 07:55] LABS: HYPOCHROM 1+; LYMPHS 10 % (21-51); MONO 6 % (1-9); SEGS 84 % (42-75)
--- NOTE | 2019-04-27 09:11 | PROGRESS NOTE ---
DATE: 04/27/2019 SUBJECTIVE: This patient is lying in bed, and she is still using the BiPAP machine. ABG are better compared with yesterday. Palliative Care, Pulmonary Department, and Hospice on board. I had a ethel conversation with the daughter and the patient at the bedside. I will wait for hospice recommendations to see if she meets criteria for inpatient hospice. Yesterday, this patient was really anxious, so I put her back on her Xanax that she has been taking at home. She seems to be less anxious at this moment. PHYSICAL EXAMINATION: Vital Signs: Temperature 98.3 degrees, pulse 90, respiratory rate 26, blood pressure 131/61, oxygen saturation 99 on the BiPAP machine. HEENT: Head normocephalic. No trauma. PERRLA. Neck: Supple. No JVD. No masses. Central trachea. Chest: Coarse breath sounds bilaterally with diffuse rhonchi and wheezing, mostly at the bases. Abdomen: Soft, nontender, nondistended. No hepatosplenomegaly. Extremities: No edema, no clubbing, no cyanosis. Neurological: The patient is alert. She is following commands. She is able to recognize family members at the bedside. She moves all 4 extremities spontaneously. LABORATORY DATA: WBC 10.2, hemoglobin 13.5, hematocrit 43.1, platelets 205,000. Sodium 135, potassium 5.1, chloride 92, bicarbonate 36, BUN 19, creatinine 0.5, glucose 123, calcium 8.3. ASSESSMENT AND PLAN: 1. Acute on chronic hypoxemic and hypercarbic respiratory failure due to end-stage chronic obstructive pulmonary disease and right lower lobe pneumonia. Continue with antibiotics and chronic obstructive pulmonary disease treatment. Pulmonary Department has been consulted, as well as Palliative Care and Hospice. 2. Right lower lobe pneumonia. Continue with antibiotics. 3. Chronic obstructive pulmonary disease exacerbation. Continue with steroids, bronchodilators, oxygen supplementation, antibiotics. 4. Hyperkalemia. Seems to be a little bit better today. 5. Hyponatremia. Continues to improve. 6. Tobacco abuse. This patient is still smoking, even though she is end-stage chronic obstructive pulmonary disease. I do not think she is willing to stop smoking at this point. Will continue with daily cessation education. 7. Type 2 diabetes. Continue sliding scale insulin and pattern of blood sugar. She has been placed on Levemir twice a day. 8. Anxiety disorder. Continue with Xanax. I put her back on her medications yesterday because she was feeling too much anxiety. 9. Gastroesophageal reflux disease. Continue with omeprazole. 10. Deep vein thrombosis prophylaxis with heparin. Palliative Care on board, and Hospice will probably take care of this patient today. I will wait for final recommendations. cc: Scotty Castillo MD
[2019-04-27] MEDS: HEPARIN SUBQ SCH (09:53)
[2019-04-27] MEDS: LEVEMIR SUBQ SCH (09:54)
[2019-04-27] MEDS: NICODERM PATCH TD SCH (09:54)
--- NOTE | 2019-04-30 07:29 | DISCHARGE SUMMARY ---
ADMISSION DATE: 04/25/2019 DISCHARGE DATE: 04/27/2019 DISCHARGE DIAGNOSES: 1. Acute on chronic hypoxemic and hypercarbic respiratory failure due to end-stage chronic obstructive pulmonary disease and right lower lobe pneumonia. 2. Right lower lobe pneumonia. 3. Chronic obstructive pulmonary disease exacerbation. 4. Hyperkalemia. 5. Hyponatremia. 6. Tobacco abuse. 7. Type 2 diabetes. 8. Anxiety disorder. 9. Gastroesophageal reflux disease. HOSPITAL COURSE: A 74-year-old female with a past medical history of end-stage COPD, asthma, tobacco dependence, diabetes, depression. She was brought to the emergency department by the family with worsening shortness of breath. She was hypoxemic. She was placed on the BiPAP machine and she was not getting better, even though she was getting the full treatment for this. A discussion with the patient and her daughter, which is at the bedside, was done and they have decided to go ahead and admit this patient with hospice since this is an end-stage condition. This patient will be discharged from the hospital and admitted to hospice. cc: Scotty Castillo MD
--- NOTE | 2019-04-30 20:43 | Extremity Venous Study ---
PROCEDURE NAME: Venous U/S Left Leg - 04/26/2019 GANG SUPERVISOR: Moy. REQUESTING PHYSICIAN: BETTY Katz. INDICATION: Shortness of breath and edema. FINDINGS: Deep and superficial veins of left lower extremity were visualized along their course. All vessels are compressible with forward flow. No evidence of intraluminal thrombus. SUMMARY: No deep or superficial venous thrombosis seen in the left lower extremity. cc: MD Elijah Ragsdale CRNP
== END 2019-04-27 11:20 | disposition hospice, inpatient (51) | DRG 871 ==
LOC: ED 14:28 → SUATTDRO 18:12 → 2N 18:12
PROVIDERS: ATTEND Internal Medicine

== ENCOUNTER 2019-04-27 11:22 | Inpatient (IN) ==
[2019-04-27] MEDS ORDERED: ATROPINE 1 % OPHTH SOLN SL PRN (11:53)
[2019-04-27] MEDS ORDERED: ZOFRAN IV PRN (11:53)
[2019-04-27] MEDS ORDERED: OFIRMEV 1000 MG/ISOTONIC SOLN 1,000 MG/100 ML BOTTLE IV PRN (11:54)
[2019-04-27] MEDS ORDERED: TRANSDERM-SCOP TD SCH (12:00)
[2019-04-27] MEDS: ATIVAN IV SCH ×6 (12:11→22:40)
[2019-04-27] MEDS: MORPHINE IV SCH ×5 (13:17→22:40)
[2019-04-28] MEDS: ATIVAN IV SCH ×7 (00:41→15:05)
[2019-04-28] MEDS: MORPHINE IV SCH ×8 (00:41→15:06)
--- NOTE | 2019-04-28 09:14 | PROGRESS NOTE ---
DATE: 04/28/2019 SUBJECTIVE: This patient is resting comfortably in bed. No acute events overnight. As per the daughter, who is at the bedside, she has been doing good. No pain, no anxiety. She has been admitted to hospice. OBJECTIVE: HEENT: Head normocephalic. No trauma. PERRLA. Neck: Supple. No JVD. No masses. Central trachea. Chest: Coarse breath sounds bilaterally with diffuse rhonchi and wheezing. She is not moving too much air. Abdomen: Soft, nontender, nondistended. No hepatosplenomegaly. Extremities: No edema, no clubbing, no cyanosis. Neurological: At this moment, this patient is sleeping. LABORATORY DATA: No lab work done today. ASSESSMENT AND PLAN: 1. Acute on chronic hypoxemic and hypercarbic respiratory failure. 2. Right lower lobe pneumonia. 3. End-stage chronic obstructive pulmonary disease exacerbation. 4. Hyperkalemia. 5. Hyponatremia. 6. Tobacco abuse. 7. Type 2 diabetes. 8. Anxiety disorder. 9. Gastroesophageal reflux disease. Overall, this patient has a poor prognosis. She has been admitted to hospice care. I will continue with the same management. She seems to be comfortable. cc: Scotty Castillo MD
[2019-04-28] MEDS: MORPHINE IV PRN ×2 (18:02→21:46)
[2019-04-28] MEDS: ATIVAN IV PRN ×2 (18:02→21:46)
[2019-04-28 21:30] VITALS: BP 87/31
[2019-04-29] MEDS: MORPHINE IV PRN (00:50)
[2019-04-29] MEDS: ATIVAN IV PRN (00:50)
--- NOTE | 2019-04-29 14:29 | DISCHARGE SUMMARY ---
ADMISSION DATE: 04/27/2019 DISCHARGE DATE: 04/29/2019 The patient 04/29/2019 at 0500. CONSULTATIONS: Dr. Llanes with Pulmonology. PERTINENT PROCEDURES: Chest x-ray showed small infiltrates. No improvement. DISCHARGE DIAGNOSES: 1. Acute on chronic hypoxemic and hypercapnic respiratory failure. 2. Right lower lobe pneumonia. 3. End-stage COPD with exacerbation. The patient was placed on comfort measures and 04/29/2019 at 0500. 4. Hyperkalemia. 5. Hyponatremia. 6. Tobacco abuse. 7. Type 2 diabetes. 8. Anxiety disorder. 9. Gastroesophageal reflux disease. HOSPITAL COURSE: Briefly, Mr. Delatorre is a 74-year-old female with end-stage COPD, tobacco dependence, diabetes mellitus type 2, depression, who was brought into the ED by family for worsening shortness of breath. She had been under the care of [facility] hospice services and when she was assessed by the nurse, she was found to be severely short of breath and hypoxic. She was brought to the ED. O2 saturations were in the 70s. She had recently been treated outpatient for pneumonia on April 22 and was admitted for acute on chronic hypoxemic hypercapnic respiratory failure, was placed on BiPAP. Continue broad-spectrum antibiotics and bronchodilator therapy for her right lower lobe pneumonia as well as treated her electrolytes. Dr. Llanes was brought on board. We consulted Palliative Care. The patient was placed on comfort measures and she succumbed to her illness on 04/29/2019 at 0500 a.m. Dictated by BETTY Ramos for Scotty Castillo MD cc: Scotty Castillo MD
== END 2019-04-29 05:00 | disposition expired | DRG 190 ==
LOC: 2N 11:22 → MED 11:22 → EDSTATUS 11:22 → PREINTOOBSV 11:40 → PREOBSVTOIN 11:42 → 1N 14:06
PROVIDERS: ATTEND Internal Medicine